=== PATIENT | male | born 1985 | race Caucasian/White ===

== ENCOUNTER 2022-05-19 15:25 | Emergency (ER) | payer SELFPAY ==
[~2022-05-19] VITALS: Ht 167.6 cm; Wt 63.5 kg
[2022-05-19 15:29] VITALS: BP 117/80
--- NOTE | 2022-05-19 15:29 | NUR ---
PATIENT BIBA TO BED 8.
[2022-05-19] MEDS: NACL 0.9% 1,000 ML IV ONE (15:43)
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
[2022-05-19 16:10] LABS: BASOPHILS # (AUTO) 0.1 K/uL (0.00-0.22); BASOPHILS % (AUTO) 1.2 % (0.0-2.0); EOSINOPHILS % (AUTO) 0.5 % (0.0-4.0); HEMATOCRIT 39.3 % (36-52); HEMOGLOBIN 12.8 g/dL (12.0-18.0); LYMPHOCYTES # (AUTO) 2.7 K/uL (2.0-11.5); LYMPHOCYTES % (AUTO) 41.4 % (20.5-51.1); MEAN CORPUSCULAR HEMOGLOBIN 27 pg (27-31); MEAN CORPUSCULAR HGB CONC 33 g/dL (33-37); MEAN CORPUSCULAR VOLUME 81.7 fL (80-94); MONOCYTES # (AUTO) 0.7 K/uL (0.8-1.0); MONOCYTES % (AUTO) 10.7 % (1.7-9.3); NEUTROPHILS % (AUTO) 46.2 % (42.2-75.2); PLATELET COUNT (AUTO) 244 K/uL (140-450); RED BLOOD CELL COUNT(AUTO) 4.81 MIL/uL (4.20-6.10); RED CELL DISTRIBUTION WIDTH 14.5 % (11.6-13.7); WHITE BLOOD COUNT (AUTO) 6.5 K/uL (4.8-10.8)
[2022-05-19 16:30] LABS: ALBUMIN 3.7 g/dL (3.4-5.0); ANION GAP 16.2 (8-16); ASPARTATE AMINOTRANSFERASE 29 U/L (15-37); CARBON DIOXIDE 24.4 mmol/L (21-32); CHLORIDE 103 mmol/L (98-107); CREATININE 1.4 mg/dL (0.6-1.3); GFR ARICAN-AMERICAN 73 mL/min (>90); GLUCOSE 65 mg/dL (74-106); POTASSIUM 3.6 mmol/L (3.5-5.1); SODIUM SERUM 140 mmol/L (136-145); TOTAL BILIRUBIN 0.4 mg/dL (0.0-1.0); UREA NITROGEN, BLOOD 26 mg/dL (7-18)
[2022-05-19 16:56] LABS: ACETAMINOPHEN < 0.5 ug/ml (10-30); SALICYLATE < 2.8 mg/dL (2.8-20.0)
[2022-05-19 17:23] LABS: CKMB RELATIVE INDEX 3.5 (0.0-2.5); CREATINE KINASE MB 17.2 ng/mL (0-3.6)
[2022-05-19] MEDS: OLANZapine 5 MG ODT PO ONE (17:51)
--- NOTE | 2022-05-19 18:33 | NUR ---
PT GIVEN URINAL FOR UA.
[2022-05-19 18:52] VITALS: BP 129/70
--- NOTE | 2022-05-19 18:52 | NUR ---
PT AMBULATES TO BATHROOM WITH STEADY GAIT
--- NOTE | 2022-05-19 19:45 | NUR ---
UA COLLECTED AND SENT TO LAB
[2022-05-19 20:28] LABS: BARBITURATE, URINE NEGATIVE ng/ml (NEG <=200); BENZODIAZEPINE, URINE NEGATIVE ng/mL (NEG <=200); CANNABINOID, URINE NEGATIVE ng/mL (NEG <=50); COCAINE, URINE NEGATIVE ng/mL (NEG <=300); OPIATE, URINE NEGATIVE ng/mL (NEG <=2000); PHENCYCLIDINE SCREEN,URINE NEGATIVE ng/mL (NEG <=25)
--- NOTE | 2022-05-19 21:00 | NUR ---
PT REFUSED TO LEAVE AFTER BEING DISCHARGED, PT STATED "I AM NOT LEAVING I AM HERE FOR 3 DAYS, DO YOU THIK IM STUPID."
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
--- NOTE | 2022-05-19 21:05 | NUR ---
UPON REMOVING IV DUE TO DISCHARGE PT STATED "DONT TOUCH ME, HOW MANY TIMES ARE YOU GOING TO REMOVE IT." "I HAVE RIGHTS"
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
--- NOTE | 2022-05-19 21:15 | NUR ---
Patient discharged with v/s stable. Written and verbal after care instructions given and explained. Patient verbalized understanding. Police with steady gait. All questions addressed prior to discharge. Advised to follow up with [employer]D. pt escorted out by PD in handcuffs
--- NOTE | 2022-05-19 21:15 | NUR ---
PT WAS REMINDED IF HE DID NOT LEAVE DUE TO BEING DISCHARGED, [facility] WILL BE CALLED AND PT STATED "CALL PD BECAUSE IIM NOT GOING ANYWHERE."
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
--- NOTE | 2022-05-19 22:41 | NUR ---
[place] [facility] AT BEDSIDE
--- NOTE | 2022-05-19 23:00 | NUR ---
PT WAS TAKEN BY PD
== END 2022-05-19 23:00 | disposition home or self-care (01) ==
LOC: MED 15:25
DX: R41.82 Altered mental status, unspecified (principal); F15.10 Other stimulant abuse, uncomplicated; J45.909 Unspecified asthma, uncomplicated; F20.9 Schizophrenia, unspecified; Z88.0 Allergy status to penicillin; Z79.899 Other long term (current) drug therapy
CPT/HCPCS: 36415; 70450; 71045; 80053; 80305; 82550; 82553; 84484; 85025; 93005; 96360; 99285; G0480; G0482; J7030; Q0092